=== PATIENT | female | born 1955 | race Caucasian/White ===

== ENCOUNTER → 2016-11-14 | Outpatient (CLI) | payer OTHER ==
[~2016-11-14] MED LIST: ALEVE220 MG PO; IBUPROFEN PO; LIDODERM 5%1 PATCH TOP; METHOTREXATE; NORCO 5-325 TA1 EACH PO; OMEGA-31000 MG PO; REBIF IM; REPLACE1 EACH PO; RESTASIS1 EACH OP; SYNTHROID112 MCG PO; WELLBUTRIN XL300 M1 PO; ZOFRAN4 MG PO; [UNRECOGNIZED DRUG - OTHER] PO
== END ==
LOC: CAT
DX: Z13.6 Encounter for screening for cardiovascular disorders (principal)

== ENCOUNTER → 2016-11-14 | Outpatient (CLI) | payer BC, OTHER | LOC: ULTRA 07:34 | DX: I10 Essential (primary) hypertension (principal); I70.1 Atherosclerosis of renal artery ==

== ENCOUNTER → 2017-02-13 | Outpatient (CLI) | payer BC, OTHER | LOC: NUC 09:26 → EDSTATUS 09:40 → NUC 10:22 | DX: M81.0 Age-related osteoporosis without current pathological fracture (principal); N91.2 Amenorrhea, unspecified; Z78.0 Asymptomatic menopausal state ==

== ENCOUNTER → 2017-07-22 | Outpatient (CLI) | payer BC, OTHER ==
[~2017-07-22] MED LIST changes: +AMPYRA10 MG PO; +ARICEPT 5 MG TAB5 MG PO; +AUBAGIO7 MG PO; +DIOVAN 80 MG TA80 M1 PO; +PREVACID30 MG PO
== END ==
LOC: RAD 01:26
DX: Z12.31 Encounter for screening mammogram for malignant neoplasm of breast (principal)

== ENCOUNTER → 2018-07-22 | Outpatient (CLI) | payer BC, OTHER | LOC: RAD 01:40 | DX: Z12.31 Encounter for screening mammogram for malignant neoplasm of breast (principal) ==

== ENCOUNTER → 2019-03-02 | Outpatient (CLI) | payer BC, OTHER | LOC: RAD → NUC 11:34 | DX: M81.0 Age-related osteoporosis without current pathological fracture (principal); M85.88 Other specified disorders of bone density and structure, other site ==

== ENCOUNTER → 2019-07-30 | Outpatient (CLI) | payer BC, OTHER | LOC: BC 07-26 15:10 | DX: Z12.31 Encounter for screening mammogram for malignant neoplasm of breast (principal) ==

== ENCOUNTER → 2019-08-16 | Outpatient (CLI) | payer BC, OTHER | LOC: ULTRA 10:02 | DX: N60.01 Solitary cyst of right breast (principal) ==

== ENCOUNTER → 2020-08-01 | Outpatient (CLI) | payer BC, OTHER | LOC: RAD 14:46 | PROVIDERS: ATTEND Obstetrics & Gynecology | DX: Z12.31 Encounter for screening mammogram for malignant neoplasm of breast (principal) ==

== ENCOUNTER → 2021-08-08 | Outpatient (CLI) | payer BC, OTHER | LOC: BC 12:41 | PROVIDERS: ATTEND Obstetrics & Gynecology | DX: Z12.31 Encounter for screening mammogram for malignant neoplasm of breast (principal) ==